=== PATIENT | female | born 1995 | race Caucasian/White ===

== ENCOUNTER 2018-12-16 23:17 | Emergency (ER) | payer MEDICAID ==
[~2018-12-16] VITALS: Ht 163.8 cm; Wt 81.8 kg
[2018-12-17] MEDS ORDERED: AMOX500C2 PO (00:45)
[2018-12-17] MEDS ORDERED: amoxicillin 250mg capsule PO ONE (00:45)
[2018-12-17] MEDS ORDERED: TRAM50TA2 PO (00:45)
[2018-12-17] MEDS ORDERED: ketorolac trometh inj. 60 MG/2 ML VIAL IM ONE (00:45)
[2018-12-17] MEDS ORDERED: ondansetron 4mg rapidly disintigrating tab PO ONE (00:45)
[2018-12-17 01:15] VITALS: BP 134/77
== END 2018-12-17 01:17 | disposition home or self-care (01) ==
LOC: ER 23:17
DX: K08.89 Other specified disorders of teeth and supporting structures (principal); Z79.899 Other long term (current) drug therapy
CPT/HCPCS: 96372; 99283; J1885

== ENCOUNTER 2019-02-06 11:03 | Emergency (ER) | payer MEDICAID ==
[~2019-02-06] VITALS: Ht 162.6 cm; Wt 76.8 kg
[2019-02-06] MEDS ORDERED: BACI1OIN6 TOP (12:59)
[2019-02-06] MEDS ORDERED: bacitracin 15gm ointment TP ONE (13:25)
[2019-02-06 13:46] VITALS: BP 124/70
== END 2019-02-06 13:48 | disposition home or self-care (01) ==
LOC: ER 11:04
DX: T22.612A Corrosion of second degree of left forearm, initial encounter (principal); L81.9 Disorder of pigmentation, unspecified; Z79.2 Long term (current) use of antibiotics; X17.XXXA Contact with hot engines, machinery and tools, initial encounter; Y93.89 Activity, other specified; Y92.810 Car as the place of occurrence of the external cause; Y99.8 Other external cause status
CPT/HCPCS: 16020; 99284

== ENCOUNTER 2019-04-18 05:04 | Emergency (ER) | payer MEDICAID ==
[~2019-04-18] VITALS: Ht 165.1 cm; Wt 84.9 kg
[~2019-04-18 05:04] MED LIST: BACI1OIN6 TOP
[2019-04-18 05:06] VITALS: BP 120/78
[2019-04-18] MEDS ORDERED: CLIN-90 PO (05:49)
[2019-04-18] MEDS ORDERED: TRAM50TA2 PO (05:49)
[2019-04-18] MEDS ORDERED: HYDROcodone/acetaminophen 10/325mg tab PO ONE (06:20)
== END 2019-04-18 06:50 | disposition home or self-care (01) ==
LOC: ER 05:05
DX: K08.89 Other specified disorders of teeth and supporting structures (principal); Z79.899 Other long term (current) drug therapy
CPT/HCPCS: 99283

== ENCOUNTER 2021-07-04 16:06 | Emergency (ER) | payer MEDICAID ==
[~2021-07-04] VITALS: Ht 162.6 cm; Wt 77.2 kg
[~2021-07-04 16:06] MED LIST changes: -BACI1OIN6 TOP; +BACI1PAC28 TOP; +CLIN-97 PO
[2021-07-04 16:09] VITALS: BP 119/71
[2021-07-04] MEDS ORDERED: ondansetron 4mg rapidly disintigrating tab PO ONE (16:50)
[2021-07-04] MEDS ORDERED: HYDROcodone/acetaminophen 5mg/325mg tablet PO ONE (16:50)
[2021-07-04] MEDS ORDERED: amox tr/potassium clavulanate 875/125mg TAB PO ONE (16:50)
[2021-07-04] MEDS ORDERED: AMOX-580 PO (17:11)
[2021-07-04] MEDS ORDERED: IBUP-1984 PO (17:11)
[2021-07-04] MEDS ORDERED: ACET-1025 PO (17:41)
== END 2021-07-04 17:59 | disposition home or self-care (01) ==
LOC: ER 16:06
DX: K04.7 Periapical abscess without sinus (principal); R42 Dizziness and giddiness; R11.0 Nausea; H92.01 Otalgia, right ear; Z79.2 Long term (current) use of antibiotics; Z79.899 Other long term (current) drug therapy
CPT/HCPCS: 99284

== ENCOUNTER 2024-11-21 21:04 | Emergency (ER) | payer BC, MEDICAID ==
[~2024-11-21] VITALS: Ht 162.6 cm; Wt 78.3 kg
[~2024-11-21 21:04] MED LIST changes: +CLIN-224 PO; -CLIN-97 PO
[2024-11-21 21:30] VITALS: BP 104/70; PULSE 76; RESP 16; O2SAT 98
[2024-11-21 22:20] LABS: URINE HCG NEGATIVE (NEG)
[2024-11-21 22:21] LABS: LEUKOCYTE ESTERASE ,URINE MODERATE (Neg); OCCULT BLOOD,URINE MODERATE (Neg)
[2024-11-21 22:39] LABS: UA COLLECTION TYPE CLN CATCH MIDSTREAM
[2024-11-21 22:53] LABS: SQUAMOUS EPITHELIAL CELL,UR MODERATE /LPF (FEW)
[2024-11-21] MEDS ORDERED: SULF1TAB45 PO (23:28)
--- NOTE | 2024-11-21 23:30 | Physician Documentation ---
History of Present Illness ~ Chief Complaint: Urinary Symptoms Stated Complaint: UTI Time Seen by MD: 22:21 Primary Medical Doctor: Leno Sellers In; [facility] 29-year-old female presents to the ED with a complaint of urinary frequency and burning with the urination x2 days. Denies any nausea vomiting or fevers. States "this feels like every other time I have had a UTI." Medication Reconciliation Allergies: Coded Allergies: No Known Allergies (Unverified , 12/16/18) Scheduled Bacitracin Zinc (Bacitracin Zinc), 1 APPLIC TOP DAILY Clindamycin HCL* (Clindamycin HCL*), 1 CAP PO Q6H Sulfamethoxazole/Trimethoprim (Septra Ds Tab), 1 TAB PO Q12H Past Medical History Past Medical History: No Pertinent History Past Surgical History: no surgical history Alcohol Use: Rarely Drug Use: none Lives with: Family Lives In: Home Occupation: employed Physical Exam Vital Signs: Temperature: 98.5, Source: Temporal, Heart Rate: 76, Respiratory Rate: 16, BP: 104/70, Pulse Oximetry: 98, Weight: 78.300 Oxygen Flow Rate: 0 Physical Exam General: Alert, no apparent distress. Respiratory: Lungs clear, no respiratory distress. Cardiovascular: Regular rate and rhythm, no murmurs. Gastrointestinal: Soft, nontender, nondistended. Bowels sounds present. Negative CVA tenderness Neurologic: Oriented x4. Psychiatric: Normal mood and affect. Progress Results/Orders Results/Orders Completed Orders - ERNESTO ROSENTHAL MEDICAL UNIT SECRETARY Sulfamethox/Trimetho. Ds Tab (Septra Ds (11/21/24 23:30) Phenazopyridine Tablet (Pyridium Tablet) (11/21/24 23:35) Medications Received in ER Medications (Trade) Dose Ordered Sig/Seema Route PRN Reason Start Time Stop Time Status Last Admin Dose Admin (Septra DS tab) 1 tab ONCE ONCE PO 11/21/24 23:30 11/21/24 23:31 DC 11/21/24 23:38 1 TAB (Pyridium tablet) 100 mg ONCE ONCE PO 11/21/24 23:35 11/21/24 23:36 DC 11/21/24 23:38 100 MG Vital Signs 11/21/24 11/21/24 21:30 23:31 Temp 98.5 98.5 Pulse 76 Resp 16 B/P (MAP) 104/70 Pulse Ox 98 O2 Flow Rate 0 Laboratory Tests Test 11/21/24 21:46 Urine Specimen Description Cln catch midstream Urine Color [place] Urine Clarity Slightly cloudy Urine pH 6.5 Urine Specific [place] <=1.005 Urine Protein 30 H Urine Glucose (UA) 100 H Urine Ketones Negative Urine Occult Blood Moderate H Urine Nitrite Urine Bilirubin Negative Urine Urobilinogen 4.0 H Urine Leukocyte Esterase Moderate H Urine RBC 3-10 Urine WBC 30-50 H Urine Squamous Epithelial Cells Moderate Urine Bacteria 2+ Urine Culture Indicated Indicated Volume Urine Centrifuged 10 ml Urine HCG, Qualitative Negative Urine Comment Medical Decision Making Findings Patient will be treated for a urinary tract infection empirically. Her urinalysis in his case both blood and white blood cell counts. Urinary Diff Dx:Considerations: Include: AAA, , Aortic dissection, Appendicitis, Bowel obstruction, Cholelithiasis, Choleangitis, DJD, Ectopic , Hepatitis, HNP, Impaction, Intrauterine , Musculoskeletal pain, Ovarian torsion, Pancreatitis, PID, Post-Op complication, Pyelonephritis, Renal failure, Strain, Urinary Obstruction, Urolithiasis, Urinary retention, UTI, Vaginitis, Other Departure Disposition: 01 HOME / SELF CARE / HOMELESS Impression: Primary Impression: Urinary tract pain Additional Impression: Acute urinary tract infection Discharge Instructions: Urinary Tract Infection, Adult Referrals: NO PRIMARY CARE PROVIDER (PCP) Prescriptions Sulfamethoxazole/Trimethoprim (Septra Ds Tab) 800 Mg/160 Mg Tablet 1 TAB PO Q12H for 10 Days, #20 TAB Prov: ERNESTO ROSENTHAL NP 11/21/24 Education Educated: Patient Educated regarding: diagnosis Signature Scribe Signature: n Attestation: Scribed for Ernesto Rosenthal Web Development Instructor by Ernesto Gutierrez NP . 11/21/24 23:48 ERNESTO ROSENTHAL NP Nov 21, 2024 23:30
[2024-11-21 23:31] VITALS: TEMP 98.5
[2024-11-21] MEDS: phenazopyridine 100mg tablet PO ONE (23:38)
[2024-11-21] MEDS: sulfamethoxazole/trimethoprim DS (800/160mg) tablet PO ONE (23:38)
== END 2024-11-21 23:40 | disposition home or self-care (01) ==
LOC: ER 21:04
DX: N39.0 Urinary tract infection, site not specified (principal); Z79.899 Other long term (current) drug therapy
CPT/HCPCS: 81001; 81025; 87077; 87088; 87186; 99283

== ENCOUNTER 2024-11-24 11:35 | Emergency (ER) | payer BC, MEDICAID ==
[~2024-11-24] VITALS: Ht 162.6 cm; Wt 77.3 kg
[~2024-11-24 11:35] MED LIST changes: +SULF1TAB45 PO
[2024-11-24 11:46] VITALS: BP 106/61; PULSE 88; RESP 16; TEMP 98.5; O2SAT 99
[2024-11-24 12:25] LABS: LEUKOCYTE ESTERASE ,URINE MODERATE (Neg); NITRITES, URINE POSITIVE (Neg); OCCULT BLOOD,URINE TRACE-INTACT (Neg)
[2024-11-24 12:30] LABS: UA COLLECTION TYPE CLN CATCH MIDSTREAM
[2024-11-24 12:32] LABS: MUCUS STRANDS FEW /LPF (Neg); SQUAMOUS EPITHELIAL CELL,UR MANY /LPF (FEW)
[2024-11-24] MEDS ORDERED: DIF150T PO (14:31)
--- NOTE | 2024-11-24 14:31 | Physician Documentation ---
History of Present Illness ~ Chief Complaint: Vaginal discharge Stated Complaint: RECHECK UTI Time Seen by MD: 13:51 OK to notify your PCP?: Yes Primary Medical Doctor: Leno De Guzman; [facility] Source: patient Mode of Arrival: POV Exam Limitations: no limitations HPI 29-year-old female presents for abnormal vaginal discharge. She states that she has a urinary tract infection and is currently on day 2 of antibiotics and started to have a white cottage cheese-like itchy vaginal discharge. She has not taken any [id number]-[id number] medications for the symptoms. Medication Reconciliation Allergies: Coded Allergies: No Known Allergies (Unverified , 12/16/18) Scheduled Bacitracin Zinc (Bacitracin Zinc), 1 APPLIC TOP DAILY Clindamycin HCL* (Clindamycin HCL*), 1 CAP PO Q6H Fluconazole* (Diflucan*), 1 TAB PO ONCE Sulfamethoxazole/Trimethoprim (Septra Ds Tab), 1 TAB PO Q12H Past Medical History Past Medical History: No Pertinent History Past Surgical History: no surgical history Alcohol Use: Rarely Drug Use: none Lives with: Family Lives In: Home Occupation: employed Review of Systems All Other Systems at this time: Reviewed and Negative Physical Exam Vital Signs: RN Vital Signs have been reviewed: Yes, Temperature: 98.5, Source: Temporal, Heart Rate: 88, Respiratory Rate: 16, BP: 106/61, Pulse Oximetry: 99, Weight: 77.270 Oxygen Flow Rate: 0 Pulse Oximetry Reflects: adequate oxygenation Physical Exam General: Alert, no apparent distress. HEENT: PERRL, EOMI, no injection, moist mucous membranes. Neck: Full range of motion. Respiratory: Lungs clear, no respiratory distress. Chest: No accessory muscle use. Cardiovascular: Regular rate and rhythm, no murmurs. Gastrointestinal: Soft, nontender, nondistended. Bowels sounds present. Extremities: Normal range of motion, no deformity. Neurologic: Oriented x4. Psychiatric: Normal mood and affect. Skin: Normal color, warm and dry. No edema, no ecchymosis. Progress Results/Orders Reviewed/noted all lab results: Yes Results/Orders Completed Orders - MARJORIE REYNOLDS OFFICE CLERK ROUTINE Ua W/Microscopic, Cult If Ind (11/24/24 11:47) Vital Signs 11/24/24 11:46 Temp 98.5 Pulse 88 Resp 16 B/P (MAP) 106/61 Pulse Ox 99 O2 Flow Rate 0 Laboratory Tests Test 11/24/24 11:47 Urine Specimen Description Cln catch midstream Urine Color Yellow Urine Clarity Cloudy Urine pH 6.5 Urine Specific [place] 1.015 Urine Protein Negative Urine Glucose (UA) Negative Urine Ketones Negative Urine Occult Blood Trace-intact Urine Nitrite Positive H Urine Bilirubin Negative Urine Urobilinogen 0.2 Urine Leukocyte Esterase Moderate H Urine RBC 0-2 Urine WBC 10-20 H Urine Squamous Epithelial Cells Many Urine Bacteria 2+ Urine Mucus Few Urine Culture Indicated Rejected for culture Volume Urine Centrifuged 10 ml Urine Comment Medical Decision Making Additional info obtained from: old records Findings 29-year-old female with symptoms of a vaginal yeast infection. Prescribed Diflucan for her to take 2 days after stopping her antibiotics. I stated that s he can use fyik-rqq-[id number] medications such as Monistat to help with symptoms in the meantime. She states that she has 1 more day left of antibiotics as it was only 3 day course. We repeated her urinalysis to see if it is still positive and she still has a UTI. Does not have any CVA tenderness or signs of pyelonephritis. Sent this prescription over to her pharmacy. She denies any other symptoms or complaints. Urinary Diff Dx:Considerations: Include: PID, Pyelonephritis, Urinary O bstruction, Urolithiasis, Urinary retention Departure Disposition: HOME / SELF CARE / HOMELESS Impression: Primary Impression: Candidiasis of vagina Condition: Stable Discharge Instructions: Yeast Infection Additional Instructions: Follow up with her primary care provider for repeat urinalysis 1 week after stopping antibiotics and return back here for any new or worsening symptoms. Referrals: NO PRIMARY CARE PROVIDER (PCP) Prescriptions Fluconazole* (Diflucan*) 150 Mg Tablet 1 TAB PO ONCE for 1 Day, #1 TAB Prov: MARJORIE REYNOLDS 11/24/24 Education Educated: Patient Educated regarding: diagnosis, treatment, prognosis, need for follow up Additional Comment Medical Screen Exam This patient recieved a medical screening examination. After reviewing the individual's medical complaints with presenting symptoms and performing an appropriate physical examination, it was determined that no immediate life- threatening emergency medical condition is present. This individual is also not a women having contractions. Signature Scribe Signature: . Attestation: Scribed for Marjorie Reynolds by Marjorie Gutierrez NP . 11/24/24 14:42 Parts of this note were created using [employer] voice recognition software program. While efforts were made to correct any mistakes made by this voice recognition software program, nonsensical phrases may remain in this note. In addition, there may be errors and syntax, grammar, content and spelling. MARJORIE REYNOLDS OFFICE CLERK ROUTINE Nov 24, 2024 14:31
== END 2024-11-24 14:51 | disposition home or self-care (01) ==
LOC: ER 11:35
DX: B37.31 Acute candidiasis of vulva and vagina (principal)
CPT/HCPCS: 81001; 99283

== ENCOUNTER 2025-03-10 14:50 | Emergency (ER) | payer BC, OTHER ==
[~2025-03-10] VITALS: Ht 162.6 cm; Wt 76.8 kg
[~2025-03-10 14:50] MED LIST changes: -SULF1TAB45 PO
[2025-03-10 15:15] VITALS: BP 122/73; PULSE 75; RESP 18; TEMP 96.8; O2SAT 100
--- NOTE | 2025-03-10 15:54 | RADIOLOGY REPORT ---
EXAM: DI SHOULDER, COMPLETE (MIN 2 VWS) REASON FOR EXAM: Shoulder Pain,LEFT TECHNIQUE: Internally and externally rotated AP views and Y-view of the left shoulder are submitted for review. COMPARISON: None FINDINGS: The bones demonstrate normal mineralization. No acute fracture or dislocation is identified the soft tissues are within normal limits. There is no widening of the acromioclavicular joint space. IMPRESSION: No acute fracture or dislocation.
[2025-03-10] MEDS: ibuprofen tablet 400 MG TABLET PO ONE (16:03)
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
[2025-03-10] MEDS ORDERED: TIZA4TAB11 PO (16:57)
[2025-03-10] MEDS ORDERED: IBUP-1984 PO (16:57)
[2025-03-10] MEDS ORDERED: LIDO-52 TOP (16:57)
== END 2025-03-10 17:02 | disposition home or self-care (01) ==
LOC: ER 14:51
DX: M54.2 Cervicalgia (principal); R07.89 Other chest pain; M25.512 Pain in left shoulder; Z88.0 Allergy status to penicillin; V89.2XXA Person injured in unspecified motor-vehicle accident, traffic, initial encounter; Y93.89 Activity, other specified; Y92.410 Unspecified street and highway as the place of occurrence of the external cause; Y99.8 Other external cause status
CPT/HCPCS: 71045; 72040; 73030; 99284

== ENCOUNTER 2025-03-15 19:18 | Emergency (ER) | payer OTHER ==
[~2025-03-15] VITALS: Ht 162.6 cm; Wt 76.5 kg
[~2025-03-15 19:18] MED LIST changes: +IBUP-1984 PO; +LIDO-52 TOP; +TIZA4TAB11 PO
[2025-03-15 19:23] VITALS: BP 112/36; PULSE 80; RESP 16; O2SAT 100
[2025-03-15] MEDS ORDERED: CYCL-1 PO (19:59)
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
[2025-03-15 20:07] VITALS: TEMP 98.5
== END 2025-03-15 20:23 | disposition home or self-care (01) ==
LOC: ER 19:19
DX: S66.912A Strain of unspecified muscle, fascia and tendon at wrist and hand level, left hand, initial encounter (principal); M54.2 Cervicalgia; Z88.0 Allergy status to penicillin; V89.2XXA Person injured in unspecified motor-vehicle accident, traffic, initial encounter; Y93.89 Activity, other specified; Y92.410 Unspecified street and highway as the place of occurrence of the external cause; Y99.8 Other external cause status
CPT/HCPCS: 99283